=== PATIENT | female | born 1945 | race Caucasian/White ===

== ENCOUNTER 2020-09-05 18:06 | Emergency (ER) | payer OTHER, BC ==
[2020-09-05 18:20] VITALS: BP 140/79; PULSE 108; TEMP 99; BMI 30.1
[2020-09-05] MEDS ORDERED: TETRACAINE 0.5% OPHTH SOLN 2 ML BOTTLE ONE (18:30)
[2020-09-05] MEDS ORDERED: FLUORESCEIN NA 1 EA STRIP ONE (18:30)
== END 2020-09-05 18:38 | disposition home or self-care (01) ==
LOC: FER 18:06
DX: H11.31 Conjunctival hemorrhage, right eye (principal)
CPT/HCPCS: 99284-25

== ENCOUNTER 2021-01-17 17:58 | Emergency (ER) | payer OTHER, BC ==
[2021-01-17 18:10] VITALS: BP 160/92; PULSE 98; TEMP 98.1; BMI 31.8
[2021-01-17] MEDS ORDERED: CEPHALEXIN MONOHYDRATE 500 MG CAPSULE (UD) PO ONE (18:59)
[2021-01-17] MEDS ORDERED: CEPHALEXIN MONOHYDRATE 500 MG CAPSULE (UD) ONE (19:06)
[2021-01-17 19:09] LABS: EPITHELIAL CELLS MODERATE /hpf
== END 2021-01-17 19:11 | disposition home or self-care (01) ==
LOC: FER 17:58
DX: N39.0 Urinary tract infection, site not specified (principal); B37.3 Candidiasis of vulva and vagina
CPT/HCPCS: 81003; 81015; 87086; 87186; 99283-25